=== PATIENT | female | born 2000 | race Caucasian/White ===

== ENCOUNTER 2025-11-13 04:20 | Inpatient (IN) | payer OTHER, MEDICAID, SELFPAY ==
[2025-11-13] VITALS (133 sets, daily range): BP systolic 99–151; BP diastolic 48–96; PULSE 67–152; RESP 16–18; TEMP 36.1–36.8; O2SAT 94–100; BMI 29.6
[2025-11-13 05:18] LABS: Hematocrit 33.4 % (37.0-47.0); Hemoglobin 11.2 g/dL (12.0-15.0); Immature Granulocyte Percent A 1.3 % (0-0.5); Lymphocytes Absolute Auto 1.94 K/mm3 (0.9-3.2); Mean Corpuscular HGB Conc 33.5 g/dl (32-36); Mean Corpuscular Hemoglobin 31.2 pg (26-34); Mean Corpuscular Volume 93.0 fl (80-100); Nucleated Red Blood Cells Absolute Auto 0.000 K/mm3 (0.0-0.012); Nucleated Red Blood Cells Perc 0.0 % (0.0-0.2); Platelet Count Result 282 k/mm3 (150-375); Red Blood Count 3.59 M/mm3 (4.2-5.4); White Blood Count 12.8 K/mm3 (4.5-10.0)
[2025-11-13 05:55] LABS: Syphilis IgG/IgM Antibody Non-Reactive (Nonreactive)
--- NOTE | 2025-11-13 05:55 | WPDANESEPP ---
Anes - Eval Pre Procedure Procedure: Labor Epidural Date/Time: 11/13/25 05:55 Surgeon: Mert Preop Diagnosis: Labor Pain Pre Op Diagnosis: Labor Patient Data Age: 25 Gender: F Height: 1.75 m Weight: 91 kg Last Vital Signs Pulse 91 11/13/25 05:55 BP 136/69 11/13/25 05:55 Pulse Ox 98 11/13/25 05:50 Allergies Allergy/AdvReac Type Severity Reaction Status Date / Time Sulfa (Sulfonamide Allergy itch Verified 11/04/25 12:36 Antibiotics) Home Medications ?Medication ?Instructions ?Recorded ?Confirmed ?Type famotidine 20 mg tablet (Pepcid) 20 mg PO HS 11/04/25 11/04/25 History vit no.95-ferrous 1 tablet PO DAILY 11/04/25 11/04/25 History fumarate 28 mg-folic acid 800 mcg tablet () Laboratory Tests 11/13/25 05:01 WBC 12.8 H K/mm3 (4.5-10.0) RBC 3.59 L M/mm3 (4.2-5.4) Hgb 11.2 L g/dL (12.0-15.0) Hct 33.4 L % (37.0-47.0) MCV 93.0 fl (80-100) MCH 31.2 pg (26-34) MCHC 33.5 g/dl (32-36) RDW 13.4 % (11.5-14.5) Plt Count 282 k/mm3 (150-375) MPV 10.8 H fl (7.4-10.4) Immature Gran % (Auto) 1.3 H % (0-0.5) Neut % (Auto) 75.8 H % (45.5-73.1) Lymph % (Auto) 15.2 L % (18.3-44.2) [place] % (Auto) 6.7 % (2.6-8.5) Eos % (Auto) 0.5 % (0-4.4) Baso % (Auto) 0.5 % (0.2-1.2) Lymph # (Auto) 1.94 K/mm3 (0.9-3.2) [place] # (Auto) 0.9 H K/mm3 (0.1-0.6) Eos # (Auto) 0.1 K/mm3 (0-0.3) Baso # (Auto) 0.1 K/mm3 (0.0-0.1) Abs Immat Gran (auto) 0.16 H K/mm3 (0.00-0.031) Absolute Neuts (auto) 9.7 H K/mm3 (1.3-6.7) Absolute Nucleated RBC 0.000 K/mm3 (0.0-0.012) Nucleated RBC % 0.0 % (0.0-0.2) Syphilis IgG/IgM Ab Non-reactive (Nonreactive) Blood Type Pending Antibody Screen Pending : gestational age (. OLEGARIO 11/14/25) Patient hx anesthesia problems: none Family hx anesthesia problems: none Results Review: All pre-operative results and documents have been reviewed as part of the pre-operative evaluation. [facility] Social History Social History Substance use: never Spiritual care concerns: No Exam Day of Procedure 11/13/25 05:55 Patient weight: normal Heart: regular rate and rhythm Lungs: normal air movement Airway: Mallampati scale class II Neurological: alert and oriented
[2025-11-13] MEDS: LACTATED RINGERS 1,000 ML 125 ML IV CONT (07:26)
[2025-11-13] MEDS: OXYTOCIN 30 UNITS/NS 500 ML 30 UNITS/500 ML BAG 999 UNITS IV CONT (12:16)
--- NOTE | 2025-11-13 12:41 | PM.OBPRVD ---
OB - Vaginal Delivery Note Procedure Delivery date: 11/13/25 Delivery monitor: External FHT and External Uterine Route of delivery: Episiotomy description: None Laceration Description: Periurethral and Perineal - 2nd Degree Delivery repair: vicryl Quantitative Blood Loss (ml): 200 Anesthesia type: Epidural Disposition: Floor Complications: No immediate complications
[2025-11-13] MEDS: OXYTOCIN 30 UNITS/NS 500 ML 30 UNITS/500 ML BAG 125 UNITS IV CONT (12:51)
[2025-11-13] MEDS: IBUPROFEN 600 MG TABLET PO (14:40)
[2025-11-13] MEDS: WITCH HAZEL 40 PADS 1 PAD TOPICAL (14:41)
[2025-11-13] MEDS: BENZOCAINE 20% AER SPR (*SP) 56 GM CAN 1 SPRAY TOPICAL (14:41)
--- NOTE | 2025-11-13 16:21 | OBPPTRN ---
1537. Patient transferred to post room #285 via wheelchair, in crib at moms side. Support person present. Oriented to unit, room, information board, rooming in, admission packet and security measures. Patient verbalizes understanding.
[2025-11-13] MEDS: DOCUSATE SODIUM 100 MG CAPSULE PO (17:02)
[2025-11-14 04:30] VITALS: BP 104/58; PULSE 82; RESP 16; RESP 18; TEMP 36.7; O2SAT 99
[2025-11-14] MEDS: IBUPROFEN 600 MG TABLET PO ×3 (04:30→20:30)
[2025-11-14 04:48] LABS: Hematocrit 29.8 % (37.0-47.0); Hemoglobin 9.5 g/dL (12.0-15.0)
[2025-11-14 07:40] VITALS: BP 117/74; PULSE 85; RESP 16; TEMP 36.6; O2SAT 98
--- NOTE | 2025-11-14 07:41 | P.PNOB_ITS ---
OB - PN: Subj Subjective Date/time seen: 11/14/25 07:41 Interval history: pp day 1 doing well OB - PN: Obj Data Labs 11/14/25 04:21 Labs: Laboratory Results - last 24 hr 11/14/25 04:21 Hgb 9.5 L Hct 29.8 L OB - PN A/P Plan day: 1 Plan: routine care and discharge home Time Spent With Patient Time: Total time spent is greater than 50% in coordination of care (as documented) at patient's floor/unit and/or counseling patient: Review of Systems 2 Review of Systems: All systems reviewed & are unremarkable except as noted in HPI and below Exam 2 Const: General: cooperative and healthy appearing Chest: Chest palpation & inspection: normal inspection of the chest GI: Inspection: normal to inspection Back/Spine/Pelvis: Back: no CVA tenderness
--- NOTE | 2025-11-14 07:44 | P.DS_ITS ---
DS: Admitting Diagnosis Discharge Date 11/14/25 Admitting Diagnosis labor DS: Discharge Diagnosis Discharge Diagnosis (1) Vaginal delivery: Code(s): O80 - Encounter for full-term uncomplicated delivery Status: Acute OB - DS: Summary OB Procedures : None OB Procedures Intrapartum: Spontaneous Vag Delivery OB Procedures: : None Peripartum Data Laceration Description: Periurethral and Perineal - 2nd Degree Episiotomy description: None Time Spent with Patient Time attestation: Total time spent providing and/or coordinating discharge services: DS: Data Data Completed and Pending Labs on day of discharge: Labs from last 24 hours 11/14/25 04:21 Hgb 9.5 L Hct 29.8 L Discharge Plan Discharge Attending physician on discharge: Albin Painting Discharging Clinician: Marilee Rios Patient Disposition: Home Activity: pelvic rest Diet: regular Patient Instructions: Antibiotic Form Patient Language: Amharic Stand Alone Forms: General Discharge Information Follow-up/Referrals: Albin Painting MD [Physician, [employer]ANT] - 4 Weeks Discharge Medications: Continued PNV no.95-ferrous fumarate-FA [] 28 mg iron- 800 mcg tablet 1 tablet PO DAILY famotidine [Pepcid] 20 mg tablet 20 mg PO HS Date of admission: 11/13/25 04:20 Primary Care Provider: PHYSICIAN,AUTOMOTIVE INSTRUCTOR Admitting Provider: Albin Painting Attending physician on admission: Albin Painting Condition: Stable
[2025-11-14] MEDS: MULTIVIT/MIN/PREN/FOL AC/IRON TABLET 1 TAB PO (09:20)
[2025-11-14] MEDS: DOCUSATE SODIUM 100 MG CAPSULE PO ×2 (09:20→17:25)
[2025-11-14 12:04] VITALS: BP 113/77; PULSE 87; RESP 18; TEMP 36.5; O2SAT 100
--- NOTE | 2025-11-14 13:22 | PC.NURSE ---
1125 Consulted with patient to assess needs related to . Discussed with mother her successes, concerns and any questions she has. Per mother infant has breastfed well without any pain to her. We reviewed working with the infant, supporting breast, protecting her nipples with an optimal deep latch, good positioning, and good hand washing. Encouraged understanding the benefits of skin to skin, responding to feeding cues, frequencies of feeding 8-12 times in 24 hours (approximately 2-3 hours), duration of feedings, milk production, intake/output feeding sheet and signs of adequate intake encouraging swallowing at the breast. Reviewed positioning and alignment, supporting breast, off-centered (asymmetrical latch) and leading with the chin with big, open, wide gape. Infant latched optimally to the [right] breast in [cradle] position. Education given to the mother of how to visualize the suckling (with good rocking jaw motion) swallows (dropping of the lower jaw) and how to listen for drinking at the breast (the ka sound). The was [not able] to maintain latch, he had recently had a circumcision and was crying/upset, mother hand expressed and infant would take the drops of colostrum but not maintain latch. Nipple care reviewed with optimal latch, good positioning and using clean hands when touching her breast. Mother to put skin to skin, allow him to calm down and attempt to latch again. Resources used to facilitate learning were used from the [visual handouts/ tool/mom and baby guide]. Mother voiced understanding of the education shared, to call for assistance if the infant does not latch or if there is discomfort with . Reported to the Primary RN. [id number] [facility] RN checked in with mother, had not yet went to breast, he was sleeping and family member was holding him and visiting. Advised to call out if she needed any assistance and that she should try to feed infant within the next hour. Reported to Primary RN.
[2025-11-14] MEDS: ACETAMINOPHEN 325 MG TABLET 650 MG PO (13:43)
--- NOTE | 2025-11-14 14:36 | WPDANLDPN2 ---
Anes-Prog Note L&D Date/Time: 11/14/25 14:36 Comfortable throughout: labor and delivery Neuraxial method: epidural Epidural/Spinal procedure site: clean & non-tender Neuro status: Neuro function grossly intact. Cardiovascular status: normal Respiratory status: normal Airway patency: baseline Mental status: baseline Post-Op hydration status: normal Vital Signs: Last Vital Signs Temp 36.5 C 11/14/25 12:04 Pulse 87 11/14/25 12:04 Resp 18 11/14/25 12:04 BP 113/77 11/14/25 12:04 Pulse Ox 100 11/14/25 12:04 O2 Del Method Room Air 11/14/25 04:30 Pain score (VAS): 1 I/O: Intake & Output 11/13/25 11/14/25 11/14/25 23:59 07:59 15:59 Intake Total 100 Balance 100 Post-procedural complaints: none Patient feedback: Patient satisfied with anesthetic care.
--- NOTE | 2025-11-14 15:10 | PC.NURSE ---
Consulted with patient to assess needs related to . Discussed with mother her successes, concerns and any questions she has. We reviewed working with the , supporting breast, protecting her nipples with an optimal deep latch, good positioning, and good hand washing. Encouraged understanding the benefits of skin to skin, responding to feeding cues, frequencies of feeding 8-12 times in 24 hours (approximately 2-3 hours), duration of feedings, milk production, intake/output feeding sheet and signs of adequate intake encouraging swallowing at the breast. Reviewed positioning and alignment, supporting breast, off-centered (asymmetrical latch) and leading with the chin with big, open, wide gape. latched optimally to the [right] breast in [cross cradle] position. Education given to the mother of how to visualize the suckling (with good rocking jaw motion) swallows (dropping of the lower jaw) and how to listen for drinking at the breast (the ka sound). The was [able] to maintain latch without discomfort to mother. Nipple care reviewed with optimal latch, good positioning and using clean hands when touching her breast. Resources used to facilitate learning were used from the [visual handouts/ tool/mom and baby guide]. Mother voiced understanding of the education shared, to call for assistance if the does not latch or if there is discomfort with . Reported to the Primary RN.
[2025-11-14 18:50] VITALS: BP 120/71; PULSE 79; RESP 16; TEMP 36.8; O2SAT 100
[2025-11-14] MEDS: BENZOCAINE 20% AER SPR (*SP) 56 GM CAN 1 SPRAY TOPICAL (20:30)
[2025-11-15] MEDS: ACETAMINOPHEN 325 MG TABLET 650 MG PO (01:05)
--- NOTE | 2025-11-15 06:26 | P.PNOB_ITS ---
OB - PN: Subj Subjective Date/time seen: 11/15/25 06:26 Interval history: pp day 2 doing well plan d/c home OB - PN: Obj Data Labs 11/14/25 04:21 OB - PN A/P Plan day: 2 Plan: routine care and discharge home Time Spent With Patient Time: Total time spent is greater than 50% in coordination of care (as documented) at patient's floor/unit and/or counseling patient: Review of Systems 2 Review of Systems: All systems reviewed & are unremarkable except as noted in HPI and below Exam 2 Const: General: cooperative, healthy appearing and comfortable Chest: Chest palpation & inspection: normal inspection of the chest Resp: Effort & Inspection: normal respiratory effort Back/Spine/Pelvis: Back: no CVA tenderness
[2025-11-15 07:20] VITALS: BP 118/80; PULSE 77; RESP 18; TEMP 36.6; O2SAT 99
[2025-11-15] MEDS: TETANUS,DIPHTHERIA,AC PERTUSSIS ADULT (0.5 ML) BOOSTRIX IM (08:42)
[2025-11-15] MEDS: DOCUSATE SODIUM 100 MG CAPSULE PO (08:44)
[2025-11-15] MEDS: IBUPROFEN 600 MG TABLET PO (08:44)
[2025-11-15] MEDS: MULTIVIT/MIN/PREN/FOL AC/IRON TABLET 1 TAB PO (08:44)
--- NOTE | 2025-11-15 09:44 | PC.NURSE ---
Patient instructed on viewing the discharge video Mother & Baby Care, The First Two Weeks. Patient was given the opportunity and encouraged to ask questions. Patient verbalized understanding of information shared and has been given the mother/baby guide for home reference.
--- NOTE | 2025-11-15 10:15 | PC.NURSE ---
Consulted with mother concerning needs and she shared her ability to independently latch infant optimally without pain. Mother is feeding appropriately for growth of infant and understands stimulating to eat if needed. Infant has had appropriate feedings in the last 24 hours meets the outcomes for weight, output, blood sugar and jaundice at this time. Reinforced understanding of milk production, transition of milk, signs of adequate intake, transition of stool, prevention/relief of engorgement, plugged ducts, mastitis, responsive watching for feeding cues, the different methods of stimulating infant to breastfeed 1-3 hours after the start of the last feeding, community resources, and when to call a provider using the resource of the feeding sheet along with the mom and baby guide. Mother voiced understanding of the information shared, is confident to continue effectively her at home, when to call for assistance, denies any additional assistance or education at this time. [facility] referral faxed to the [place] office. Reported to the Primary RN.
[2025-11-17 10:02] VITALS: BP 119/74; PULSE 82; RESP 18; TEMP 37.1; O2SAT 100
--- NOTE | 2025-11-17 10:25 | PC.NURSE ---
discussed PP depression scale with pt., discussed what makes her anxious and coping mechanisms, states she feels that she is not as anxious as the last day or so and is getting better, has been using her mother, boyfriend and boyfriends' mother for assistance, instructed to call if feeling worse, assures me that she will, encouraged to have boyfriend and mother read PP depression pamphlet
--- NOTE | 2025-11-17 10:39 | PC.NURSE ---
call to Dr. Painting's office, message left re: PP Depression scale score, what pt and i talked about, my return phone number left for them to call with any questions
== END 2025-11-15 12:15 | disposition home or self-care (01) | DRG 807 ==
LOC: ANHLDR 05:08 → ANHOB2 15:46
PROVIDERS: Admitting Provider Obstetrics & Gynecology; Visit Provider Obstetrics & Gynecology
DX: O70.1 Second degree perineal laceration during delivery (principal); Z37.0 Single live birth; Z3A.39 39 weeks gestation of pregnancy; O71.82 Other specified trauma to perineum and vulva; Z23 Encounter for immunization
CPT/HCPCS: 36415; 85014; 85018; 85025; 86593; 86850; 86900; 86901; 90715; A9270; J2590; J2795; J7120